=== PATIENT | male | born 1960 | race Two or more races ===

== ENCOUNTER 2024-01-01 19:12 | Emergency (ER) | payer SELFPAY ==
[2024-01-01 19:17] VITALS: BP 130/78; PULSE 78; RESP 18; TEMP 98.6; BMI 30.2
== END 2024-01-01 20:17 | disposition home or self-care (01) ==
LOC: JERFT 19:12
DX: Z20.822 Contact with and (suspected) exposure to COVID-19 (principal)
CPT/HCPCS: 0241U-QW; 99283-25